=== PATIENT | male | born 1985 | race Caucasian/White ===

== ENCOUNTER 2021-08-30 14:33 | Emergency (ER) | payer OTHER, SELFPAY | END 2021-08-30 16:05 | disposition home or self-care (01) | LOC: CSHERS 14:33 | DX: S40.012A Contusion of left shoulder, initial encounter (principal); F17.210 Nicotine dependence, cigarettes, uncomplicated; V89.2XXA Person injured in unspecified motor-vehicle accident, traffic, initial encounter | CPT/HCPCS: 99283 ==